=== PATIENT | male | born 1980 | race Caucasian/White ===

== ENCOUNTER 2019-01-23 19:41 | Emergency (ER) | payer BC, OTHER ==
[2019-01-23] MEDS ORDERED: Sodium Chloride 0.9% 10 ML Syringe FLUSH PRN (20:11)
--- NOTE | 2019-01-23 20:47 | EDM.PDOC ---
ED HPI GENERAL MEDICAL PROBLEM - General Chief Complaint: Cardiovascular Problem Stated Complaint: DIZZY/HIGH BLOOD PRESSURE SENT BY [facility] Time Seen by Provider: 01/23/19 20:06 Source of Information: Reports: Patient, RN Notes Reviewed History Limitations: Reports: No Limitations - History of Present Illness INITIAL COMMENTS - FREE TEXT/NARRATIVE: Patient is a 38-year-old male who presents to the ED for the evaluation of high blood pressure, and chest discomfort. Patient notes he has been having issues with high blood pressure for a while now, he was prescribed lisinopril 10 mg last year for this, but he states he ceased taking this this summer, as he was feeling better. Patient started to check his blood pressure at home today again for some reason, and it was found to be 140/97, and again at 161/105. Patient blood pressure at time of triage is 167/119. He went to the walk-in clinic today, but told him to come to the ER for management as his blood pressure was in the 160s systolically. Patient notes he has been having a headache in the back of his head, and he has a feeling of chest discomfort or tightness, that is in the middle of his chest for the last hour. He does have a history of GERD, so he took Tums thinking this was indigestion, the Tums help the indigestion, but did not help the chest discomfort or tightness. He states he has mild shortness of breath with exertion. And that he is never had this tightness or discomfort before. He is not a smoker, uses alcohol very rarely, and does not use any drugs. He notes that his mother's grandfather's brothers from heart attacks at the ages of 38 and 52. His most recent care provider was Natasha Jacobsen out of the [facility]. Middle Chest Pain Score (Numeric/FACES): 3 - Related Data Allergies Allergy/AdvReac Type Severity Reaction Status Date / Time No Known Allergies Allergy Verified 01/23/19 19:52 Home Meds: Home Meds Lisinopril 10 mg PO DAILY #30 tablet 01/23/19 [Rx] Past Medical History HEENT History: Reports: Impaired Vision Cardiovascular History: Reports: Hypertension Respiratory History: Reports: None Gastrointestinal History: Reports: GERD Genitourinary History: Reports: None Neurological History: Reports: None Psychiatric History: Reports: None Endocrine/Metabolic History: Reports: None Hematologic History: Reports: None Immunologic History: Reports: None Oncologic (Cancer) History: Reports: None Dermatologic History: Reports: None - Infectious Disease History Infectious Disease History: Reports: None - Past Surgical History HEENT Surgical History: Reports: Myringotomy w Tube(s) Musculoskeletal Surgical History: Reports: Other (See Below) Other Musculoskeletal Surgeries/Procedures:: Left Knee Surgery Social & Family History - Tobacco Use Smoking Status *Q: Never Smoker - Caffeine Use Caffeine Use: Reports: None - Recreational Drug Use Recreational Drug Use: No ED ROS GENERAL - Review of Systems Review Of Systems: See Below Constitutional: Denies: Fever, Chills, Malaise Respiratory: Reports: Shortness of Breath (mild with exertion) Cardiovascular: Reports: Chest Pain (mid chest tightness/discomfort), Blood Pressure Problem (hx of htn, elevated readings at home), Dyspnea on Exertion ( mild). Denies: Edema, Lightheadedness, Palpitations GI/Abdominal: Denies: Diarrhea, Nausea, Vomiting Musculoskeletal: Denies: Back Pain Neurological: Reports: Headache ED EXAM, GENERAL - Physical Exam Exam: See Below Exam Limited By: No Limitations General Appearance: Alert, WD/WN, No Apparent Distress Eye Exam: Bilateral Eye: EOMI, Normal Inspection, PERRL Ears: Normal External Exam Nose: Normal Inspection Throat/Mouth: Normal Inspection, Normal Lips, Normal Teeth, Normal Gums, Normal Oropharynx, Normal Voice, No Airway Compromise Head: Atraumatic, Normocephalic Neck: Normal Inspection Respiratory/Chest: No Respiratory Distress, Lungs Clear, Normal Breath Sounds, No Accessory Muscle Use, Chest Non-Tender Cardiovascular: Normal Peripheral Pulses, Regular Rate, Rhythm, No Edema, No Murmur Peripheral Pulses: 3+: Radial (L), Radial (R) GI/Abdominal: Normal Bowel Sounds, Soft, Non-Tender, No Distention, No Mass Back Exam: Normal Inspection Extremities: Normal Inspection, Normal Range of Motion, Normal Capillary Refill Neurological: Alert, Oriented, Normal Cognition, No Motor/Sensory Deficits Psychiatric: Normal Affect, Normal Mood Skin Exam: Warm, Dry, Intact, Normal Color, No Rash EKG INTERPRETATION EKG Date: 01/23/19 Time: 20:14 Rhythm: NSR Rate (Beats/Min): 87 [place]: Normal P-Wave: Present QRS: Normal ST-T: Normal QT: Normal Comparison: Other: (Previous EKG reviewed by myself, no apparent change noted.) EKG Interpretation Comments: consider L atrial hypertrophy, mildly decreased voltage in limb leads, diffuse early repolarization pattern. Reviewed by myself and Dr. Gordon. Course - Vital Signs Last Recorded V/S: Last Vital Signs Temp 98.3 F 01/23/19 19:48 Pulse 100 01/23/19 19:48 Resp 16 01/23/19 19:48 BP 167/119 H 01/23/19 19:48 Pulse Ox 99 01/23/19 19:48 - Orders/Labs/Meds Orders: Active Orders 24 hr Category Date Time Status EKG Documentation Completion [RC] STAT Care 01/23/19 20:11 Active Peripheral IV Care [RC] . DIRECTED Care 01/23/19 20:11 Active Chest 1V Frontal [CR] Stat Exams 01/23/19 20:11 Taken Sodium Chloride 0.9% [Saline Flush] Med 01/23/19 20:11 Active 10 ml FLUSH ASDIRECTED PRN Peripheral IV Insertion Adult [OM.PC] Stat Oth 01/23/19 20:11 Ordered Medication Orders Sodium Chloride (Saline Flush) 10 ml FLUSH ASDIRECTED PRN PRN Reason: Keep Vein Open Last Admin: 01/23/19 20:20 Dose: 10 ml Labs: Laboratory Tests 01/23/19 01/23/19 01/23/19 Range/Units 20:15 20:15 20:15 WBC 6.35 (4.23-9.07) K/mm3 RBC 4.91 (4.63-6.08) M/mm3 Hgb 14.9 D (13.7-17.5) gm/dl Hct 41.5 (40.1-51.0) % MCV 84.5 (79.0-92.2) fl MCH 30.3 (25.7-32.2) pg MCHC 35.9 H (32.2-35.5) g/dl RDW Std Deviation 38.0 (35.1-43.9) fL Plt Count 218 (163-337) K/mm3 MPV 9.8 (9.4-12.3) fl Neutrophils % (Manual) 59 (40-60) % Band Neutrophils % 0 (0-10) % Lymphocytes % (Manual) 33 (20-40) % Atypical Lymphs % 0 % Monocytes % (Manual) 6 (2-10) % Eosinophils % (Manual) 2 (0.8-7.0) % Basophils % (Manual) 0 L (0.2-1.2) Platelet Estimate Adequate Plt Morphology Comment Normal RBC Morph Comment Normal PT 10.5 (9.7-12.0) SECONDS INR 0.96 APTT 27 (22-31) SECONDS Sodium 142 (136-145) mEq/L Potassium 3.7 (3.5-5.1) mEq/L Chloride 106 (98-107) mEq/L Carbon Dioxide 25 (21-32) mEq/L Anion Gap 14.7 (5-15) BUN 21 H (7-18) mg/dL Creatinine 1.2 (0.7-1.3) mg/dL Est Cr Clr Drug Dosing 84.28 mL/min Estimated GFR (MDRD) > 60 (>60) mL/min BUN/Creatinine Ratio 17.5 (14-18) Glucose 102 (74-106) mg/dL Calcium 9.2 (8.5-10.1) mg/dL Magnesium 2.0 (1.8-2.4) mg/dl Total Bilirubin 0.5 (0.2-1.0) mg/dL AST 8 L (15-37) U/L ALT 30 (16-63) U/L Alkaline Phosphatase 65 (46-116) U/L Troponin I < 0.017 (0.00-0.056) ng/mL Total Protein 7.3 (6.4-8.2) g/dl Albumin 4.1 (3.4-5.0) g/dl Globulin 3.2 gm/dL Albumin/Globulin Ratio 1.3 (1-2) Meds: Medications Generic Name Dose Route Start Last Admin Trade Name Freq PRN Reason Stop Dose Admin Sodium Chloride 10 ml 01/23/19 20:11 01/23/19 20:20 Saline Flush FLUSH 10 ml ASDIRECTED PRN Administration Keep Vein Open - Re-Assessments/Exams Free Text/Narrative Re-Assessment/Exam: 01/23/19 20:47 Patient presents to the ED for chest discomfort and elevated blood pressure. Patient's EKG demonstrates normal sinus rhythm at 87 bpm, no acute ischemic changes noted. Have order chest x-ray, CBC, CMP, troponin, magnesium, and coags for further evaluation. If labs are within normal limits, will likely start the patient back on his lisinopril and have him follow-up with a primary care provider of choice. He notes he recently moved to [place], and is looking for a new care provider. 01/23/19 21:14 Patient's laboratory evaluation demonstrates no focal abnormalities. Troponin negative. Chest x-ray appears to be within normal limits, no acute infiltrates noted. This was reviewed by myself and Dr. Gordon. Will discharge patient home with general recommendations and start him back on his lisinopril 10 mg and have him follow-up with the primary care provider of choice. Departure - Departure Time of Disposition: 21:15 Disposition: Home, Self-Care 01 Condition: Fair Clinical Impression: Elevated blood pressure reading with diagnosis of hypertension, Chest discomfort Prescriptions: Lisinopril 10 mg PO DAILY #30 tablet Instructions: How to Take Your Blood Pressure Forms: ED Department Discharge Additional Instructions: You were evaluated in the ER today regarding your elevated blood pressure and feelings of chest discomfort. Your EKG was within normal limits, there are no acute ischemic changes noted. Your laboratory evaluation also demonstrated no acute focal abnormalities. Your chest x-ray was within normal limits as well. You were started on lisinopril 10 mg, 1 tab daily again. You were given a 30- day supply, you will need to set up primary care in this timeframe for further and future management of your blood pressure. Our [facility] clinic number is , the [facility] is [phone]. Any family practice provider would be able to provide you with the services. Please return to the ER at any time if your symptoms should change or worsen. Sepsis Event Note - Evaluation Sepsis Screening Result: No Definite Risk - Focused Exam Vital Signs: Vital Signs Temp Pulse Resp BP Pulse Ox 01/23/19 19:48 98.3 F 100 16 167/119 H 99 Date Exam was Performed: 01/23/19 Time Exam was Performed: 21:14 - My Orders Last 24 Hours: My Active Orders 01/23/19 20:11 EKG Documentation Completion [RC] STAT Peripheral IV Care [RC] . DIRECTED Chest 1V Frontal [CR] Stat Sodium Chloride 0.9% [Saline Flush] 10 ml FLUSH ASDIRECTED PRN Peripheral IV Insertion Adult [OM.PC] Stat - Assessment/Plan Last 24 Hours: My Active Orders 01/23/19 20:11 EKG Documentation Completion [RC] STAT Peripheral IV Care [RC] . DIRECTED Chest 1V Frontal [CR] Stat Sodium Chloride 0.9% [Saline Flush] 10 ml FLUSH ASDIRECTED PRN Peripheral IV Insertion Adult [OM.PC] Stat
--- NOTE | 2019-01-24 10:21 | CR ---
Chest: Portable view of the chest was obtained. Comparison: Prior chest x-ray of 02/01/18. Heart size and mediastinum are normal. Lungs are clear. Bony structures are grossly intact. Impression: 1. Nothing acute is seen on portable chest x-ray. Diagnostic code #1 This report was dictated in [place] Standard Time
== END 2019-01-23 21:42 | disposition home or self-care (01) ==
LOC: JD.ED 19:41
DX: I10 Essential (primary) hypertension (principal); R07.89 Other chest pain; Z79.899 Other long term (current) drug therapy
CPT/HCPCS: 36415; 71045; 71045-26; 80053; 83735; 84484; 85007; 85027; 85610; 85730; 93005; 93010; 99284; 99285-25

== ENCOUNTER 2019-06-25 11:06 | Emergency (ER) | payer BC ==
[2019-06-25] MEDS ORDERED: LORazepam 0.5 MG Tab PO ONE (11:40)
--- NOTE | 2019-06-25 11:47 | EDM.PDOC ---
ED HPI GENERAL MEDICAL PROBLEM - General Chief Complaint: Chest Pain Stated Complaint: CHEST PAIN Time Seen by Provider: 06/25/19 11:30 Source of Information: Reports: Patient, Old Records, RN Notes Reviewed History Limitations: Reports: No Limitations - History of Present Illness INITIAL COMMENTS - FREE TEXT/NARRATIVE: Patient is a 38-year-old male who presents to the ED for the evaluation of his left-sided chest pain. Patient states that he developed some left-sided chest pain and tightness feelings after he finished breakfast this morning, he states that he gets these from time to time, when he "overeats" he thought maybe he had done this again this morning. Triage nurse noted that he was hyperventilating at time of arrival. The patient states he has been told that he has some anxiety, and this feels similar to times when he has been told he has anxiety. He is complaining of some mild indigestion as well, he states that he did not take any medications to try to help relieve the indigestion. He does try taking walks, shower/balance when these waves hit him, but states nothing really seems to help him much. Patient notes that he feels like his heart is beating out of his chest, he feels a wave start in his stomach and work its way upwards, and notes that he gets some intense burning type pain in his right arm when these "waves hit him". He notes that he does have some mild shortness of breath with this, lightheadedness and believes he has some hot flashes where he feels hot and cold but has not had a fever or cough, he denies any nausea/vomiting/diarrhea. Patient states that he does take lisinopril, and that his primary care provider is Verona Jacobsen from the [facility] Chest Pain Score (Numeric/FACES): 6 - Related Data Allergies Allergy/AdvReac Type Severity Reaction Status Date / Time No Known Allergies Allergy Verified 06/25/19 11:18 Home Meds: Home Meds lisinopriL [Lisinopril] 10 mg PO DAILY #30 tablet 01/23/19 [Rx] LORazepam [Ativan] 1 mg PO TID PRN #12 tab 06/25/19 [Rx] Past Medical History HEENT History: Reports: Impaired Vision Cardiovascular History: Reports: Hypertension Respiratory History: Reports: None Gastrointestinal History: Reports: GERD Genitourinary History: Reports: None Neurological History: Reports: None Psychiatric History: Reports: None Endocrine/Metabolic History: Reports: None Hematologic History: Reports: None Immunologic History: Reports: None Oncologic (Cancer) History: Reports: None Dermatologic History: Reports: None - Infectious Disease History Infectious Disease History: Reports: None - Past Surgical History HEENT Surgical History: Reports: Myringotomy w Tube(s) Musculoskeletal Surgical History: Reports: Other (See Below) Other Musculoskeletal Surgeries/Procedures:: Left Knee Surgery Social & Family History - Tobacco Use Smoking Status *Q: Never Smoker - Caffeine Use Caffeine Use: Reports: None ED ROS GENERAL - Review of Systems Review Of Systems: Comprehensive ROS is negative, except as noted in HPI. ED EXAM, GENERAL - Physical Exam Exam: See Below Exam Limited By: No Limitations General Appearance: Alert, WD/WN, No Apparent Distress, Anxious (mildly anxious , patient does talk fast) Throat/Mouth: Normal Inspection, Normal Lips, Normal Voice Head: Atraumatic, Normocephalic Neck: Normal Inspection Respiratory/Chest: No Respiratory Distress, Lungs Clear, Normal Breath Sounds, No Accessory Muscle Use, Chest Non-Tender Cardiovascular: Normal Peripheral Pulses, Regular Rate, Rhythm, No Edema, No Murmur GI/Abdominal: Normal Bowel Sounds, Soft, Non-Tender, No Distention, No Mass Extremities: Normal Inspection, Normal Capillary Refill Neurological: Alert, Oriented, Normal Cognition, No Motor/Sensory Deficits Psychiatric: Normal Affect, Normal Mood, Anxious (slightly) Skin Exam: Warm, Dry, Intact, Normal Color, No Rash EKG INTERPRETATION EKG Date: 06/25/19 Time: 11:13 Rhythm: NSR (sinus tachycardia) Rate (Beats/Min): 103 [place]: Normal P-Wave: Present QRS: Normal ST-T: Normal QT: Normal EKG Interpretation Comments: No obvious ischemia or acute ST changes noted, reviewed by myself and Dr. Gordon. Course - Vital Signs Last Recorded V/S: Last Vital Signs Temp 97.4 F 06/25/19 11:15 Pulse 110 H 06/25/19 11:15 Resp 16 06/25/19 11:15 BP 128/88 06/25/19 11:15 Pulse Ox 99 06/25/19 11:15 - Orders/Labs/Meds Orders: Active Orders 24 hr Category Date Time Status EKG Documentation Completion [RC] STAT Care 06/25/19 11:21 Active COMPREHENSIVE METABOLIC PN,CMP [CHEM] Stat Lab 06/25/19 11:21 Ordered TROPONIN I [CHEM] Stat Lab 06/25/19 11:21 Ordered Labs: Laboratory Tests 06/25/19 06/25/19 Range/Units 11:40 11:40 WBC 7.48 (4.23-9.07) K/mm3 RBC 5.30 (4.63-6.08) M/mm3 Hgb 16.3 (13.7-17.5) gm/dl Hct 45.4 (40.1-51.0) % MCV 85.7 (79.0-92.2) fl MCH 30.8 (25.7-32.2) pg MCHC 35.9 H (32.2-35.5) g/dl RDW Std Deviation 38.8 (35.1-43.9) fL Plt Count 246 (163-337) K/mm3 MPV 10.0 (9.4-12.3) fl Neut % (Auto) 73.6 H (34.0-67.9) % Lymph % (Auto) 13.5 L (21.8-53.1) % [place] % (Auto) 10.2 (5.3-12.2) % Eos % (Auto) 1.9 (0.8-7.0) Baso % (Auto) 0.3 (0.1-1.2) % Neut # (Auto) 5.51 H (1.78-5.38) K/mm3 Lymph # (Auto) 1.01 L (1.32-3.57) K/mm3 [place] # (Auto) 0.76 (0.30-0.82) K/mm3 Eos # (Auto) 0.14 (0.04-0.54) K/mm3 Baso # (Auto) 0.02 (0.01-0.08) K/mm3 Sodium 139 (136-145) mEq/L Potassium 3.5 (3.5-5.1) mEq/L Chloride 105 (98-107) mEq/L Carbon Dioxide 22 (21-32) mEq/L Anion Gap 15.5 H (5-15) BUN 22 H (7-18) mg/dL Creatinine 1.3 (0.7-1.3) mg/dL Est Cr Clr Drug Dosing 77.80 mL/min Estimated GFR (MDRD) > 60 (>60) mL/min BUN/Creatinine Ratio 16.9 (14-18) Glucose 118 H (74-106) mg/dL Calcium 9.1 (8.5-10.1) mg/dL Total Bilirubin 1.1 H (0.2-1.0) mg/dL ALT 28 (16-63) U/L Troponin I < 0.017 (0.00-0.056) ng/mL Total Protein 7.7 (6.4-8.2) g/dl Albumin 4.2 (3.4-5.0) g/dl Globulin 3.5 gm/dL Albumin/Globulin Ratio 1.2 (1-2) Meds: Medications Discontinued Medications Generic Name Dose Route Start Last Admin Trade Name Freq PRN Reason Stop Dose Admin Lorazepam 0.5 mg 06/25/19 11:40 06/25/19 11:51 Ativan PO 06/25/19 11:41 0.5 mg ONETIME ONE Administration - Re-Assessments/Exams Free Text/Narrative Re-Assessment/Exam: 06/25/19 11:45 Patient presents to the ER for evaluation of his left-sided chest tightness/ pain. Upon talking with the patient, I do believe this might stem from anxiety in nature. Standing orders were put in at time of triage, to include basic labs and EKG, EKG shows no obvious signs of acute ischemia, was reviewed by myself and Dr. Gordon. 06/25/19 12:03 CXR demonstrates no acute findings. 06/25/19 12:50 Labs have returned, troponin is negative, metabolic panel suggest mild dehydration, will have him increase his oral fluid intake, patient states that the Ativan did seem to help his symptoms, will send him home with a few tablets of this and have him follow-up with his primary care provider for continuation. Patient was okay with this plan and will be discharged home at this time. Departure - Departure Time of Disposition: 12:51 Disposition: Home, Self-Care 01 Condition: Good Clinical Impression: Chest tightness, Anxiety Prescriptions: LORazepam [Ativan] 1 mg PO TID PRN #12 tab PRN Reason: Anxiety Instructions: Nonspecific Chest Pain, Adult, [id number], Living With Anxiety Referrals: PCP,Not In Area [Primary Care Provider] - Forms: ED Department Discharge Additional Instructions: You were evaluated in the ER today regarding your left-sided chest discomfort. You had some labs taken, and an EKG and a chest x-ray done, all of these returned to be within normal limits. There is no sign of any acute heart attack or other cardiac etiology at today's visit. You were given some Ativan in the ER, this seemed to help your symptoms, which is suggestive that this is more likely due to anxiety than any cardiac issue. You were given a few tablets of Ativan to try on outpatient basis, please take 1 tablet 3 times a day as needed for further anxiety relief. You will need to follow-up with your primary care provider for a refill of this medication if you feel it is working for you. Please return to the ER at any time if symptoms change or worsen. Sepsis Event Note - Evaluation Sepsis Screening Result: No Definite Risk - Focused Exam Vital Signs: Vital Signs Temp Pulse Resp BP Pulse Ox 06/25/19 11:15 97.4 F 110 H 16 128/88 99 Date Exam was Performed: 06/25/19 Time Exam was Performed: 12:50
--- NOTE | 2019-06-25 11:57 | CR ---
Chest: Portable view of the chest was obtained. Comparison: Prior chest x-ray of 01/23/19. Heart size and mediastinum are normal. Lungs are clear with no acute parenchymal change. Bony structures are grossly intact. Impression: 1. Nothing acute is identified on portable chest x-ray. Diagnostic code #1 This report was dictated in MDT
== END 2019-06-25 13:35 | disposition home or self-care (01) ==
LOC: JD.ED 11:06
DX: F41.9 Anxiety disorder, unspecified (principal); R07.89 Other chest pain; I10 Essential (primary) hypertension; R00.0 Tachycardia, unspecified; Z79.899 Other long term (current) drug therapy
CPT/HCPCS: 36415; 71045; 80053; 84484; 85025; 93005; 99285; A9270; 93010; 99283

== ENCOUNTER 2019-07-20 18:05 | Emergency (ER) | payer BC ==
--- NOTE | 2019-07-20 19:52 | EDM.PDOC ---
ED HPI GENERAL MEDICAL PROBLEM - General Chief Complaint: Bite:Animal, Insect Stated Complaint: HEADACHE/STIFFNESS/SKIN COMPLAINT Time Seen by Provider: 07/20/19 18:34 Source of Information: Reports: Patient History Limitations: Reports: No Limitations - History of Present Illness INITIAL COMMENTS - FREE TEXT/NARRATIVE: Patient is a 38-year-old male who presents to the emergency department with complaints of a persistent rash near his umbilicus, intermittent headaches, and joint aches. He states about a week and a half ago he was bit by a tick inside his umbilicus. Shortly thereafter he developed a rash that at one time surrounded his entire umbilicus. Rash is now only present a small amount to the right side of the umbilicus. It is intermittently itchy. He believes it was a wood tick, however he states he did not look at it very closely to determine if it was a deer tick. The bite took place in [place]. He cannot differentiate if the rash was originally a bull's-eye rash as it originated inside his umbilicus. He has had no fever or chills. Generalized Pain Score (Numeric/FACES): 5 - Related Data Allergies Allergy/AdvReac Type Severity Reaction Status Date / Time No Known Allergies Allergy Verified 07/20/19 18:22 Home Meds: Home Meds lisinopriL [Lisinopril] 10 mg PO DAILY #30 tablet 01/23/19 [Rx] LORazepam [Ativan] 1 mg PO TID PRN #12 tab 06/25/19 [Rx] Doxycycline [Vibra-Tabs] 100 mg PO Q12HR #20 tab 07/20/19 [Rx] Past Medical History HEENT History: Reports: Impaired Vision Cardiovascular History: Reports: Hypertension Respiratory History: Reports: None Gastrointestinal History: Reports: GERD Genitourinary History: Reports: None Neurological History: Reports: None Psychiatric History: Reports: None Endocrine/Metabolic History: Reports: None Hematologic History: Reports: None Immunologic History: Reports: None Oncologic (Cancer) History: Reports: None Dermatologic History: Reports: None - Infectious Disease History Infectious Disease History: Reports: None - Past Surgical History HEENT Surgical History: Reports: Myringotomy w Tube(s) Musculoskeletal Surgical History: Reports: Other (See Below) Other Musculoskeletal Surgeries/Procedures:: Left Knee Surgery Social & Family History - Tobacco Use Smoking Status *Q: Never Smoker - Caffeine Use Caffeine Use: Reports: Coffee ED ROS GENERAL - Review of Systems Review Of Systems: See Below Constitutional: Reports: No Symptoms, Fatigue. Denies: Fever, Chills, Weakness, Night Sweats, Weight Loss HEENT: Reports: No Symptoms Respiratory: Reports: No Symptoms Cardiovascular: Reports: No Symptoms Endocrine: Reports: No Symptoms GI/Abdominal: Reports: No Symptoms : Reports: No Symptoms Musculoskeletal: Reports: Joint Pain Skin: Reports: Rash Neurological: Reports: Headache Psychiatric: Reports: No Symptoms Hematologic/Lymphatic: Reports: No Symptoms Immunologic: Reports: No Symptoms ED EXAM, ANIMAL BITE - Physical Exam Exam: See Below Exam Limited By: No Limitations General Appearance: Alert, WD/WN, No Apparent Distress Respiratory/Chest: No Respiratory Distress, Lungs Clear, Normal Breath Sounds, No Accessory Muscle Use, Chest Non-Tender Cardiovascular: Normal Peripheral Pulses, Regular Rate, Rhythm, No Edema, No Gallop, No JVD, No Murmur, No Rub Neurological: Alert, Oriented, CN II-XII Intact, Normal Cognition, Normal Gait, Normal Reflexes, No Motor/Sensory Deficits Psychiatric: Normal Affect, Normal Mood Skin Exam: Rash (3 cm maculopapular rash to the right of the umbilicus. no open areas or drainage noted.) Course - Vital Signs Last Recorded V/S: Last Vital Signs Temp 97.8 F 07/20/19 18:18 Pulse 73 07/20/19 18:18 Resp 18 07/20/19 18:18 BP 137/89 07/20/19 18:18 Pulse Ox 97 07/20/19 18:18 - Orders/Labs/Meds Orders: Active Orders 24 hr Category Date Time Status LYME (B.BURGDORFERI) PCR [REF] Routine Lab 07/20/19 19:50 Received Labs: Laboratory Tests 07/20/19 07/20/19 Range/Units 19:50 19:50 WBC 6.03 (4.23-9.07) K/mm3 RBC 5.16 (4.63-6.08) M/mm3 Hgb 15.8 (13.7-17.5) gm/dl Hct 44.7 (40.1-51.0) % MCV 86.6 (79.0-92.2) fl MCH 30.6 (25.7-32.2) pg MCHC 35.3 (32.2-35.5) g/dl RDW Std Deviation 39.1 (35.1-43.9) fL Plt Count 227 (163-337) K/mm3 MPV 10.2 (9.4-12.3) fl Neut % (Auto) 56.3 (34.0-67.9) % Lymph % (Auto) 27.9 (21.8-53.1) % Dickinson % (Auto) 13.1 H (5.3-12.2) % Eos % (Auto) 2.2 (0.8-7.0) Baso % (Auto) 0.3 (0.1-1.2) % Neut # (Auto) 3.40 (1.78-5.38) K/mm3 Lymph # (Auto) 1.68 (1.32-3.57) K/mm3 Dickinson # (Auto) 0.79 (0.30-0.82) K/mm3 Eos # (Auto) 0.13 (0.04-0.54) K/mm3 Baso # (Auto) 0.02 (0.01-0.08) K/mm3 Sodium 139 (136-145) mEq/L Potassium 4.5 (3.5-5.1) mEq/L Chloride 104 (98-107) mEq/L Carbon Dioxide 26 (21-32) mEq/L Anion Gap 13.5 (5-15) BUN 19 H (7-18) mg/dL Creatinine 1.3 (0.7-1.3) mg/dL Est Cr Clr Drug Dosing 77.80 mL/min Estimated GFR (MDRD) > 60 (>60) mL/min BUN/Creatinine Ratio 14.6 (14-18) Glucose 89 (74-106) mg/dL Calcium 9.1 (8.5-10.1) mg/dL Total Bilirubin 0.9 (0.2-1.0) mg/dL AST 12 L (15-37) U/L ALT 23 (16-63) U/L Alkaline Phosphatase 64 (46-116) U/L C-Reactive Protein <0.2 (<1.0) mg/dL Total Protein 7.6 (6.4-8.2) g/dl Albumin 4.4 (3.4-5.0) g/dl Globulin 3.2 gm/dL Albumin/Globulin Ratio 1.4 (1-2) - Re-Assessments/Exams Free Text/Narrative Re-Assessment/Exam: Patient's hematology was grossly unremarkable. Lyme's disease testing has been submitted, however states a number of days to get results. We will start the patient on doxycycline for treatment of early Lyme's disease in the event this would be positive. He will be notified of the test results once they are completed. Discharge instructions as documented. Departure - Departure Time of Disposition: 20:47 Disposition: Home, Self-Care 01 Condition: Good Clinical Impression: Rash Tick bite of abdomen Qualifiers: Encounter type: initial encounter Qualified Code(s): S30.861A - Insect bite (nonvenomous) of abdominal wall, initial encounter - Discharge Information *PRESCRIPTION DRUG MONITORING PROGRAM REVIEWED*: No *COPY OF PRESCRIPTION DRUG MONITORING REPORT IN PATIENT ALEJANDRINA: No Prescriptions: Doxycycline [Vibra-Tabs] 100 mg PO Q12HR #20 tab Instructions: Tick Bite Information, Adult, [id number] Referrals: Verona Jacobsen NP [Primary Care Provider] - Forms: ED Department Discharge Additional Instructions: You were seen in the emergency department today for a tick bite resulting in a rash to your umbilicus, joint aches, and generalized fatigue. Blood work was done and found to be normal, however the Lyme's disease test does take approximately 10 days to get results on. In the meantime, we will treat you preventatively with doxycycline for early Lyme's disease. This medication has been sent to [facility]. Take it twice daily for 10 days. You may use Tylenol or ibuprofen as needed for body aches. Ensure that you are staying adequately hydrated. You will be notified when the results of the Lyme's disease test are available. If you experience any new or worsening symptoms of concern, please do not hesitate to return to the emergency department. Sepsis Event Note - Evaluation Sepsis Screening Result: No Definite Risk - Focused Exam Vital Signs: Vital Signs Temp Pulse Resp BP Pulse Ox 07/20/19 18:18 97.8 F 73 18 137/89 97 Date Exam was Performed: 07/20/19 Time Exam was Performed: 22:13 - My Orders Last 24 Hours: My Active Orders 07/20/19 19:50 LYME (B.BURGDORFERI) PCR [REF] Routine - Assessment/Plan Last 24 Hours: My Active Orders 07/20/19 19:50 LYME (B.BURGDORFERI) PCR [REF] Routine
== END 2019-07-20 20:55 | disposition home or self-care (01) ==
LOC: JD.ED 18:05
DX: S30.861A Insect bite (nonvenomous) of abdominal wall, initial encounter (principal); I10 Essential (primary) hypertension; Z79.899 Other long term (current) drug therapy; W57.XXXA Bitten or stung by nonvenomous insect and other nonvenomous arthropods, initial encounter
CPT/HCPCS: 36415; 80053; 85025; 86140; 87476; 99282; 99283

== ENCOUNTER 2020-05-12 06:35 | Emergency (ER) | payer BC ==
--- NOTE | 2020-05-12 07:13 | EDM.PDOC ---
ED HPI GENERAL MEDICAL PROBLEM - General Chief Complaint: General Stated Complaint: ABD PAIN/SOB/CHEST PAIN X30 DAYS/LIGHT HEADED Time Seen by Provider: 05/12/20 06:48 Source of Information: Reports: Patient, Family History Limitations: Reports: No Limitations - History of Present Illness INITIAL COMMENTS - FREE TEXT/NARRATIVE: 39-year-old male presents to the ED complaining of pressure in the central chest in particular the epigastrium of his upper abdomen. Claims he is unable to eat as it accumulates in his distal esophagus and feels like it is going up into his chest. We will then at some later time percolate through into the upper abdomen causing him to burp and belch repeatedly. He estimates a 30 pound weight loss over the last 30 days. Had an EGD done in [place] 2 weeks ago and was told he had a hiatal hernia but no ulceration. He has been on Protonix 40 mg daily for the last 3 years. Is also on lisinopril 10 mg daily for hypertension. He has never been tested for gluten enteropathy. Does not really complain of pain but more pressure discomfort when he tries to eat even soup. Questionable whether or not he has achalasia. States his bowels tend to be on the looser side but to never contain blood. Occasional vomits food product but no blood. Onset: Unknown/Unsure ([place] symptom onset over period of 2 months or more.) Onset Date: 03/14/20 Duration: Week(s):, Chronic, Constant, Getting Worse Location: Reports: Abdomen (Upper abdominal pain worsened by eating with associated 30 pound weight loss reported over the last month.) Quality: Reports: Ache, Pressure Severity: Moderate Improves with: Reports: None Worsens with: Reports: Eating Context: Denies: Activity, Exercise, Lifting, Sick Contact, Trauma, Other Associated Symptoms: Reports: Malaise, Nausea/Vomiting (Nausea times occasional reflux versus vomiting.), Other (Occasional mild diarrhea stools.) Treatments DEAN OF GIRLS: Reports: Other (see below) (Tonics 40 mg daily.) Bilateral Upper Abdomen Pain Score (Numeric/FACES): 5 - Related Data Allergies Allergy/AdvReac Type Severity Reaction Status Date / Time No Known Allergies Allergy Verified 07/20/19 18:22 Home Meds: Home Meds lisinopriL [Lisinopril] 10 mg PO DAILY #30 tablet 01/23/19 [Rx] Pantoprazole [ProTONIX] 40 mg PO DAILY 05/12/20 [History] Sucralfate [Carafate] 1 gm PO TID #300 ml 05/12/20 [Rx] Past Medical History HEENT History: Reports: Impaired Vision Other HEENT History: Wears glasses Cardiovascular History: Reports: Hypertension Respiratory History: Reports: None Gastrointestinal History: Reports: GERD, Hiatal Hernia Genitourinary History: Reports: None Neurological History: Reports: None Psychiatric History: Reports: Anxiety Endocrine/Metabolic History: Reports: None Hematologic History: Reports: None Immunologic History: Reports: None Oncologic (Cancer) History: Reports: None Dermatologic History: Reports: None - Infectious Disease History Infectious Disease History: Reports: None - Past Surgical History HEENT Surgical History: Reports: Adenoidectomy, Myringotomy w Tube(s), Tonsillectomy Musculoskeletal Surgical History: Reports: Arthroscopic Knee, Other (See Below) Other Musculoskeletal Surgeries/Procedures:: Left Knee Surgery Social & Family History - Tobacco Use Tobacco Use Status *Q: Unknown Ever Used Tobacco - Caffeine Use Caffeine Use: Reports: Coffee - Living Situation & Occupation Living situation: Reports: Occupation: Unemployed ED ROS GENERAL - Review of Systems Review Of Systems: See Below Constitutional: Reports: Malaise, Weakness, Fatigue, Decreased Appetite ([place] weight loss in 30 days.), Weight Loss. Denies: Fever, Chills HEENT: Reports: Glasses Respiratory: Reports: Shortness of Breath, Cough. Denies: Wheezing, Pleuritic Chest Pain (In his lower chest gives him a sensation of shortness of breath but no true dyspnea.), Sputum, Hemoptysis Cardiovascular: Reports: Chest Pain (Occasional.), Blood Pressure Problem ( Pain up from his stomach and epigastrium.), Lightheadedness, Palpitations. Denies: Claudication, Dyspnea on Exertion, Edema, Orthopnea Endocrine: Reports: Fatigue GI/Abdominal: Reports: Abdominal Pain (Primarily epigastric abdominal discomfort), Diarrhea (Rare vomiting or loose stools), Decreased Appetite, Nausea, Vomiting : Reports: No Symptoms Musculoskeletal: Reports: No Symptoms Skin: Reports: No Symptoms Neurological: Reports: Dizziness Psychiatric: Reports: Anxiety Hematologic/Lymphatic: Reports: No Symptoms Immunologic: Reports: No Symptoms ED EXAM, GENERAL - Physical Exam Exam: See Below Exam Limited By: No Limitations General Appearance: Alert, WD/WN, No Apparent Distress, Other (Appears mildly th in. Temperature is 36.4 degrees heart rate 81 and sinus respiratory of 17 with O2 sats of 96% room air BP 156/95.) Eye Exam: Bilateral Eye: Normal Inspection (No scleral icterus or blepharal pallor.), PERRL Ears: Normal TMs Throat/Mouth: Normal Oropharynx (Tongue is dry and coated. Oropharynx otherwise shows no signs of infection.), Other Head: Atraumatic, Normocephalic. No: Facial Swelling, Facial Tenderness Neck: Normal Inspection, Supple, Non-Tender, Full Range of Motion. No: Carotid Bruit, Lymphadenopathy (L), Lymphadenopathy (R), Thyromegaly Respiratory/Chest: No Respiratory Distress, Lungs Clear, Normal Breath Sounds, No Accessory Muscle Use Cardiovascular: Normal Peripheral Pulses, Regular Rate, Rhythm, No Edema, No Gallop, No Murmur, No Rub Peripheral Pulses: 3+: Carotid (L), Carotid (R), Posterior Tibial (L), Posterior Tibial (R), Dorsalis Pedis (L), Dorsalis Pedis (R) GI/Abdominal: Normal Bowel Sounds, Soft, No Distention, No Mass, Tender (Is in t he epigastric gastrium with mild diastases recti appreciable on exam. No true hernia identified.). No: Hepatomegaly, Splenomegaly (Male) Exam: No Hernia Back Exam: Normal Inspection, Full Range of Motion. No: CVA Tenderness (L), CVA Tenderness (R) Extremities: Normal Inspection, Normal Range of Motion, Non-Tender, No Pedal Edema Neurological: Alert, Oriented, CN II-XII Intact, Normal Cognition Psychiatric: Normal Affect, Normal Mood Skin Exam: Warm, Dry, Intact, Normal Color, No Rash #1 Interpretation EKG Date: 05/12/20 Time: 07:17 Rhythm: NSR Rate (Beats/Min): 65 [place]: Normal P-Wave: Enlarged (Sitter left atrial hypertrophy. T wave inverted in leads V1 and V2.) QRS: Other (RSR prime wave in lead V1 consider normal variant. Initial poor R wave progression.) ST-T: Other (T wave flattening in V2 only nonspecific finding) QT: Normal EKG Interpretation Comments: Borderline ECG Course - Vital Signs Last Recorded V/S: Last Vital Signs Temp 36.4 C 05/12/20 06:43 Pulse 81 05/12/20 06:43 Resp 17 05/12/20 06:43 BP 156/95 H 05/12/20 06:43 Pulse Ox 96 05/12/20 06:43 - Orders/Labs/Meds Orders: Active Orders 24 hr Category Date Time Status UA W/ASHLEY RFLX IF INDICATED [URIN] Stat Lab 05/12/20 06:56 Ordered Labs: Laboratory Tests 05/12/20 05/12/20 05/12/20 Range/Units 07:30 07:30 07:30 WBC 3.95 L (4.23-9.07) K/mm3 RBC 4.88 (4.63-6.08) M/mm3 Hgb 14.8 (13.7-17.5) gm/dl Hct 41.5 (40.1-51.0) % MCV 85.0 (79.0-92.2) fl MCH 30.3 (25.7-32.2) pg MCHC 35.7 H (32.2-35.5) g/dl RDW Std Deviation 36.5 (35.1-43.9) fL Plt Count 209 (163-337) K/mm3 MPV 10.3 (9.4-12.3) fl Neutrophils % (Manual) 62 H (40-60) % Band Neutrophils % 0 (0-10) % Lymphocytes % (Manual) 24 (20-40) % Atypical Lymphs % 0 % Monocytes % (Manual) 11 H (2-10) % Eosinophils % (Manual) 3 (0.8-7.0) % Basophils % (Manual) 0 L (0.2-1.2) Platelet Estimate Adequate RBC Morph Comment Normal ESR (0-15) mm/hr Sodium 141 (136-145) mEq/L Potassium 3.8 (3.5-5.1) mEq/L Chloride 106 (98-107) mEq/L Carbon Dioxide 24 (21-32) mEq/L Anion Gap 14.8 (5-15) BUN 11 (7-18) mg/dL Creatinine 1.3 (0.7-1.3) mg/dL Est Cr Clr Drug Dosing 77.04 mL/min Estimated GFR (MDRD) > 60 (>60) mL/min BUN/Creatinine Ratio 8.5 L (14-18) Glucose 104 (74-106) mg/dL Calcium 9.4 (8.5-10.1) mg/dL Magnesium 2.1 (1.8-2.4) mg/dl Total Bilirubin 1.0 (0.2-1.0) mg/dL GGT 12 L (15-85) U/L AST 15 (15-37) U/L ALT 25 (16-63) U/L Alkaline Phosphatase 54 (46-116) U/L Troponin I < 0.017 (0.00-0.056) ng/mL C-Reactive Protein <0.2 (<1.0) mg/dL Total Protein 7.5 (6.4-8.2) g/dl Albumin 4.6 (3.4-5.0) g/dl Globulin 2.9 gm/dL Albumin/Globulin Ratio 1.6 (1-2) Lipase 169 (73-393) U/L TSH 3rd Generation (0.358-3.74) uIU/mL 05/12/20 05/12/20 Range/Units 07:30 07:30 WBC (4.23-9.07) K/mm3 RBC (4.63-6.08) M/mm3 Hgb (13.7-17.5) gm/dl Hct (40.1-51.0) % MCV (79.0-92.2) fl MCH (25.7-32.2) pg MCHC (32.2-35.5) g/dl RDW Std Deviation (35.1-43.9) fL Plt Count (163-337) K/mm3 MPV (9.4-12.3) fl Neutrophils % (Manual) (40-60) % Band Neutrophils % (0-10) % Lymphocytes % (Manual) (20-40) % Atypical Lymphs % % Monocytes % (Manual) (2-10) % Eosinophils % (Manual) (0.8-7.0) % Basophils % (Manual) (0.2-1.2) Platelet Estimate RBC Morph Comment ESR 2 (0-15) mm/hr Sodium (136-145) mEq/L Potassium (3.5-5.1) mEq/L Chloride (98-107) mEq/L Carbon Dioxide (21-32) mEq/L Anion Gap (5-15) BUN (7-18) mg/dL Creatinine (0.7-1.3) mg/dL Est Cr Clr Drug Dosing mL/min Estimated GFR (MDRD) (>60) mL/min BUN/Creatinine Ratio (14-18) Glucose (74-106) mg/dL Calcium (8.5-10.1) mg/dL Magnesium (1.8-2.4) mg/dl Total Bilirubin (0.2-1.0) mg/dL GGT (15-85) U/L AST (15-37) U/L ALT (16-63) U/L Alkaline Phosphatase (46-116) U/L Troponin I (0.00-0.056) ng/mL C-Reactive Protein (<1.0) mg/dL Total Protein (6.4-8.2) g/dl Albumin (3.4-5.0) g/dl Globulin gm/dL Albumin/Globulin Ratio (1-2) Lipase (73-393) U/L TSH 3rd Generation 0.511 (0.358-3.74) uIU/mL Meds: Medications Discontinued Medications Generic Name Dose Route Start Last Admin Trade Name Freq PRN Reason Stop Dose Admin Diatrizoate Meglum/Diatrizoate Sod 90 ml 05/12/20 07:55 05/12/20 09:18 Diatrizoate Meglumine/Diatrizoate Sodium 37% 120 Ml Bottle PO 05/12/20 07:56 45 ml ONETIME ONE Administration Dextrose/Sodium Chloride 1,000 mls @ 999 mls/hr 05/12/20 07:45 05/12/20 08:00 Dextrose 5%-Normal Saline IV 999 mls/hr ASDIRECTED MELLY Administration Iopamidol 100 ml 05/12/20 09:15 05/12/20 09:18 Iopamidol 612 Mg/Ml 100 Ml Bottle IVPUSH 05/12/20 09:16 Not Given ONETIME ONE Iopamidol 25 ml 05/12/20 09:16 05/12/20 09:18 Iopamidol 612 Mg/Ml 50 Ml Sdv IVPUSH 05/12/20 09:17 Not Given ONETIME ONE Lorazepam 1 mg 05/12/20 08:02 05/12/20 08:07 Lorazepam 2 Mg/Ml Sdv IVPUSH 05/12/20 08:03 1 mg ONETIME ONE Administration Ondansetron HCl 4 mg 05/12/20 08:02 05/12/20 08:07 Ondansetron 4 Mg/2 Ml Sdv IVPUSH 05/12/20 08:03 4 mg ONETIME ONE Administration Sodium Chloride 10 ml 05/12/20 09:15 05/12/20 09:42 Sodium Chloride 0.9% 10 Ml Syringe FLUSH 10 ml ONETIME PRN Administration Keep Vein Open - Radiology Interpretation Free Text/Narrative:: 39-year-old male presents to the ED with a multitude of upper GI complaints for quite a few months. This is resulted in a he reported 30 pound weight loss over the last 4 to 6 weeks. Recent upper GI EGD done in [place] by gastroenterology services identified a hiatal hernia but no ulceration in the distal esophagus. Patient has a feeling of food accumulation in his distal esophagus if he tries to eat and then has some regurgitation at times and then a feeling like a sudden onset of percolating through the distal esophagus into the stomach. Then he will burp after this. Patient has not had any investigations as far as esophageal motility studies ago. He has been primarily cared for by PA/JUNIOR DATABASE ADMINISTRATOR in [place]. It is unclear to me how he ended up in [place] for an EGD. He has not seen a physician here in [place]. Dr. Leblanc had put in initial orders on this patient. I have added a few other orders. He will have CT of the abdomen and pelvis with oral and IV contrast. - Re-Assessments/Exams Free Text/Narrative Re-Assessment/Exam: 05/12/20 09:36 Labs reveal a normal white count at 3.95 in fact this suggest very mild leukopenia. The differential is normal with 62% neutrophils and 24% lymphocytes 11% monos monocytes which is slightly high hemoglobin is 14.8 with hematocrit of 41.5. Platelet counts 209,000. Sed rate is 2. Sodium 141 with a potassium of 3.8. Chloride 106 the bicarb of 24. Anion gap is 14.8. BUN is 11 with a creatinine of 1.3. GFR is greater than 60. Glucose is 104 with a calcium of 9.4. Magnesium is 2.1. Total bilirubin is 1.0 with a GGT of 12 .AST is 15 ALT is 25. Alk phosphatase is 54. Troponin I is less than 0.017. C- reactive protein is less than 0.2 total protein 7.5 with an albumin fraction of 4.6 which is not suggestive of starvation and a 30 pound weight loss which the patient claims to be experienced over the last 30 days. Lipase is 169. TSH is normal at 0.511. 05/12/20 09:36 Portable chest x-ray has been done. Heart size and mediastinum are normal. Lungs are clear with no acute parenchymal changes no acute osseous findings are appreciated. Patient was experiencing a great deal of anxiety and some nausea about ability to keep down oral contrast. He was given Zofran 4 mg IV and Ativan 1 mg IV for anxiety relief. This is in the hopes of achieving a CT of his abdomen and pelvis. 05/12/20 10:35 CT of the chest and abdomen has been completed with oral cast. It was my intent to give him IV contrast as well. Noncontrast appearance of the liver shows no focal parenchymal abnormality. Spleen shows no abnormality. Adrenal glands show no nodules. Pancreas shows no discrete abnormality. Gallbladder contains no calcified stones kidneys show no abnormal calcifications no discrete renal parenchymal abnormalities appreciated. Ureters show No dilatation or obstructing calculus. Abdominal aorta shows no aneurysm. No retrocrural adenopathy or mesenteric abnormalities are seen. Minimal fat-con taining umbilical hernia noted. Appendix is seen which is normal. No pelvic mass or adenopathy is seen. Slight increased stool is noted within the rectum and portions of the sigmoid colon bowel gas pattern is otherwise within normal limits. Bone window settings were reviewed which show several incidental bone islands within the right femoral neck. Mild disc space narrowing is noted at the L4-5 level. No acute osseous findings are otherwise appreciated. 05/12/20 10:37 copies of the EGD done in [place] at [facility] the test performed on April 24, 2020 the second part of the duodenum was identified by visual landmarks. The scope was subsequently removed slowly while carefully examining the color, texture, anatomy and integrity of the mucosa on the way out. In the stomach the scope was retroflexed to evaluate the cardia and the fundus. The esophagus gastro duodenoscopy was performed without difficulty. The patient tolerated the procedure well. The patient was subsequently transferred to the recovery area in satisfactory condition. Findings are that of a hiatal hernia. Esophageal dilatation performed over guidewire using 17 mm savory dilator normal stomach normal duodenum. There is documentation for follow-up in clinic to review those results and decide on further management if persistent or recurrent symptoms occur. Departure - Departure Time of Disposition: 11:39 Disposition: Home, Self-Care 01 Condition: Fair Clinical Impression: Peptic stricture of esophagus, Hiatal hernia Reflux esophagitis Qualifiers: Esophagitis bleeding: without hemorrhage Qualified Code(s): K21.00 - Gastro- esophageal reflux disease with esophagitis, without bleeding - Discharge Information *PRESCRIPTION DRUG MONITORING PROGRAM REVIEWED*: Not Applicable *COPY OF PRESCRIPTION DRUG MONITORING REPORT IN PATIENT ALEJANDRINA: Not Applicable Prescriptions: Sucralfate [Carafate] 1 gm PO TID #300 ml Instructions: Hiatal Hernia, Gastroesophageal Reflux Disease, Adult, [id number], Esophageal Stricture Referrals: Verona Jacobsen JUNIOR DATABASE ADMINISTRATOR [Primary Care Provider] - Forms: ED Department Discharge Additional Instructions: Evaluation in the emergency room today in regards to persistent problems with ability to swallow with food getting stuck in the pit of your stomach compatible with a peptic stricture or narrowing of the lower portion of the esophagus or food pipe. This was recently confirmed by upper GI endoscopy by core man in [place] on April 24. He identified a hiatal hernia and did in fact dilate your esophagus mildly but he does not say to what degree. The fact that you are still having troubles with taking in any solid food with continued aggressive weight loss indicates that it is quite narrow and needs further dilatation. I have discussed her case with our local surgeon Dr. Cote and he will try and get you into clinic here tomorrow. If we do not have a date and time to see him tomorrow before you leave the ED we will have his title clerk automobile call you later this afternoon with a time to come in tomorrow. In the meantime start the Carafate liquid which is 1 g half hour before an attempt at eating so ideally 3 times a day. Continue your Protonix. I would suggest since your 30 pound weight loss that you could trial off your lisinopril which may help improve your lightheaded spells. You need to have a physician here in the city to help manage other problems and referrals as needed. Suggest following up with either Dr. Kim De La Cruz or both of which work on the third floor [place] of the hospital. You can arrange an appointment by calling [phone]. Sepsis Event Note (ED) - Evaluation Sepsis Screening Result: No Definite Risk - Focused Exam Vital Signs: Vital Signs Temp Pulse Resp BP Pulse Ox 05/12/20 06:43 36.4 C 81 17 156/95 H 96
[2020-05-12] MEDS ORDERED: Dextrose 5%-0.9% NaCl 1,000 ML IV SCH (07:45)
[2020-05-12] MEDS: Diatrizoate Meglumine/Diatrizoate Sodium 37% 120 ML Bottle PO ONE ×2 (08:00→09:18)
[2020-05-12] MEDS ORDERED: Ondansetron 4 MG/2 ML SDV IVPUSH ONE (08:02)
[2020-05-12] MEDS ORDERED: LORazepam 2 MG/ML SDV IVPUSH ONE (08:02)
--- NOTE | 2020-05-12 09:04 | CR ---
Chest: Portable view of the chest was obtained. Comparison: Prior chest x-ray 06/25/19. Heart size and mediastinum are normal. Lungs are clear with no acute parenchymal change. No acute osseous finding is appreciated. Impression: 1. Nothing acute is seen on portable chest x-ray. Diagnostic code #1
[2020-05-12] MEDS ORDERED: Sodium Chloride 0.9% 10 ML Syringe FLUSH PRN (09:15)
[2020-05-12] MEDS ORDERED: Iopamidol 612 MG/ML 100 ML Bottle IVPUSH ONE (09:15)
[2020-05-12] MEDS ORDERED: Iopamidol 612 MG/ML 50 ML SDV IVPUSH ONE (09:16)
--- NOTE | 2020-05-12 09:50 | CT ---
CT abdomen and pelvis Technique: Multiple axial sections were obtained from above the dome of the diaphragm inferiorly through the pubic symphysis. Intravenous contrast was not utilized. Small amount of oral contrast was given. Reconstructed coronal and sagittal images were obtained. Comparison: No prior CT abdomen or pelvis exam is available. Findings: Visualized lung bases show nothing acute. Noncontrast appearance of the liver shows no focal parenchymal abnormality. Spleen shows no abnormality. Adrenal glands show no nodule. Pancreas shows no discrete abnormality. Gallbladder contains no calcified gallstones. Kidneys show no abnormal calcifications. No discrete renal parenchymal abnormality is appreciated. Ureters show no dilatation or obstructing calculus. Abdominal aorta shows no aneurysm. No retroperitoneal adenopathy or mesenteric abnormalities are seen. Minimal fat-containing umbilical hernia is noted. Appendix is seen which is normal. No pelvic mass or adenopathy is seen. Slight increased stool is noted within the rectum and portions of the sigmoid colon. Bowel gas pattern is otherwise within normal limits. Bone window settings were reviewed which show several incidental bone islands within the right femoral neck. Mild disc space narrowing is noted at L4-5. No acute osseous finding is seen. Impression: 1. Slight increased stool within portions of the sigmoid colon and rectum. 2. Other findings as noted above which are believed to be incidental. Diagnostic code #2
== END 2020-05-12 12:23 | disposition home or self-care (01) ==
LOC: JD.ED 06:35
DX: K21.00 Gastro-esophageal reflux disease with esophagitis, without bleeding (principal); K22.2 Esophageal obstruction; K44.9 Diaphragmatic hernia without obstruction or gangrene; I10 Essential (primary) hypertension; Z79.899 Other long term (current) drug therapy
CPT/HCPCS: 36415; 71045; 71045-26; 74176; 74176-26; 80053; 82977; 83690; 83735; 84443; 84484; 85007; 85027; 85652; 86140; 93005; 93010; 96374; 96375; 99284; 99285-25; J2060; J2405; J7042; Q9963

== ENCOUNTER 2020-05-15 06:33 | Day surgery (SDC) | payer BC ==
[~2020-05-15 06:33] MED LIST: Lactated Ringers 1,000 ML IV SCH; Lidocaine 1%/Sod Bicarbonate in NS 8.4% 1 ML Syringe IDERM PRN; Sodium Chloride 0.9% 10 ML Syringe FLUSH PRN
--- NOTE | 2020-05-15 07:24 | PCM.PREANE ---
Preanesthetic Assessment - Procedure Proposed Procedure: Diag. EGD - Anesthesia/Transfusion/Family Hx Anesthesia History: Prior Anesthesia Reaction Family History of Anesthesia Reaction: No Transfusion History: No Prior Transfusion(s) - Review of Systems General: Malaise Pulmonary: No Symptoms Cardiovascular: No Symptoms Gastrointestinal: Abdominal Pain, Nausea Neurological: No Symptoms Other: Reports: Anxiety - Physical Assessment NPO Status Date: 05/14/20 NPO Status Time: 11:00 Height: 1.75 m Weight: 73.8 kg ASA Class: 2 Mental Status: Alert & Oriented x3 Airway Class: Mallampati = 1 Dentition: Reports: Normal Dentition Thyro-Mental Finger Breadths: 3 Mouth Opening Finger Breadths: 3 ROM/Head Extension: Full Lungs: Clear to Auscultation, Normal Respiratory Effort Cardiovascular: Regular Rate, Regular Rhythm - Allergies Allergies/Adverse Reactions: Allergies Allergy/AdvReac Type Severity Reaction Status Date / Time No Known Allergies Allergy Verified 05/14/20 11:41 - Blood Blood Available: No Product(s) Available: None - Anesthesia Plan Pre-Op Medication Ordered: None - Acknowledgements Anesthesia Type Planned: MAC Pt an Appropriate Candidate for the Planned Anesthesia: Yes Alternatives and Risks of Anesthesia Discussed w Pt/Guardian: Yes Pt/Guardian Understands and Agrees with Anesthesia Plan: Yes PreAnesthesia Questionnaire HEENT History: Reports: Impaired Vision Other HEENT History: Wears glasses Cardiovascular History: Reports: Hypertension Respiratory History: Reports: None Gastrointestinal History: Reports: GERD, Hiatal Hernia, Other (See Below) Other Gastrointestinal History: dysphagia, esophageal stricture Genitourinary History: Reports: None PULLBOAT ENGINEER History: Reports: None Musculoskeletal History: Reports: Arthritis Neurological History: Reports: Migraines Psychiatric History: Reports: Anxiety Endocrine/Metabolic History: Reports: None Hematologic History: Reports: None Immunologic History: Reports: None Oncologic (Cancer) History: Reports: None Dermatologic History: Reports: None - Infectious Disease History Infectious Disease History: Reports: None - Past Surgical History Head Surgeries/Procedures: Reports: None HEENT Surgical History: Reports: Adenoidectomy, Myringotomy w Tube(s), Naso- Sinus Surgery, Tonsillectomy Cardiovascular Surgical History: Reports: None Respiratory Surgical History: Reports: None GI Surgical History: Reports: None Female Surgical History: Reports: None Male Surgical History: Reports: None Endocrine Surgical History: Reports: None Neurological Surgical History: Reports: None Musculoskeletal Surgical History: Reports: Arthroscopic Knee, Other (See Below) Other Musculoskeletal Surgeries/Procedures:: Left Knee Surgery Oncologic Surgical History: Reports: None Dermatological Surgical History: Reports: None - SUBSTANCE USE Tobacco Use Status *Q: Never Tobacco User Recreational Drug Use History: No - HOME MEDS Home Medications: Home Meds Pantoprazole [ProTONIX] 40 mg PO DAILY 05/12/20 [History] Sucralfate [Carafate] 1 gm PO TID #300 ml 05/12/20 [Rx] Famotidine [Pepcid AC] 20 mg PO DAILY 05/14/20 [History] Fish Oil/[place]-3 Fatty Acids [Fish Oil 1,000 MG] 1 gm PO DAILY 05/14/20 [History] Shel[place] 500 mg PO DAILY 05/14/20 [History] LORazepam [Ativan] 0.5 mg PO BID PRN 05/14/20 [History] Multivitamin 1 tab PO DAILY 05/14/20 [History] diphenhydrAMINE HCL [Benadryl] 25 mg PO BEDTIME 05/14/20 [History] valACYclovir [Valtrex] 1,000 mg PO ASDIRECTED PRN 05/14/20 [History] - CURRENT (IN HOUSE) MEDS Current Meds: Current Medications Lactated Ringer's (Ringers, Lactated) 1,000 mls @ 125 mls/hr IV ASDIRECTED MELLY Stop: 05/15/20 23:00 Lidocaine/Sodium Bicarbonate (Lidocaine 1%/Sod Bicarbonate In Ns 8.4% 1 Ml Syringe) 0.25 ml IDERM ONETIME PRN PRN Reason: Prior to IV Start Stop: 05/15/20 18:00 Sodium Chloride (Sodium Chloride 0.9% 10 Ml Syringe) 10 ml FLUSH ASDIRECTED PRN PRN Reason: Keep Vein Open Stop: 05/15/20 18:00
[2020-05-15] MEDS ORDERED: Midazolam 1 MG/ML 2 ML SDV ONE (07:34)
[2020-05-15] MEDS ORDERED: Lidocaine 1% 4 ML ONE (07:35)
[2020-05-15] MEDS ORDERED: Propofol 200 MG/20 ML SDV ONE ×2 (07:35→07:42)
--- NOTE | 2020-05-15 07:59 | PCM.PRNOTE ---
- Free Text/Narrative Note: Date: 05/15/2020 Procedure: diagnostic esophagogastroduodenoscopy History: recent EGD with reported peptic stricture dilated to 17 mm, and finding of small sliding hiatal hernia. Patient has continued dysphagia and weight loss. Endoscopist: Benji Cote MD Findings: gross changes in esophagus consistent with reflux esophagitis. No stricture. duodenum and stomach appeared normal and no hiatal hernia noted. Normal appearance to Z line. Biopsies of duodenum, antrum, and distal esophagus obtained with cold forceps. Detailed Report: The patient was taken to the endoscopy suite and placed in left lateral decubitus position. A bite block was placed, and timeout was performed. Monitored anesthesia care was initiated. The endoscope was inserted into the mouth and advanced to the second portion of the duodenum with ease. Duodenal mucosa appeared normal with snyder yellow bile contents. A sample biopsy of duodenal bulb mucosa was obtained with cold forceps. The pylorus appeared normal. A sample of gastric antral mucosa was obtained as well. There was no gross evidence of gastritis or ulceration. The incisura appeared normal. On retroflexion of the scope, no hiatal hernia was appreciated. The scope was then withdrawn into the distal esophagus. The Z-line appeared relatively normal. The esophageal mucosa had some linear streaking consistent with LA grade a reflux esophagitis. Biopsies with cold forceps of distal esophagus were obtained. No other abnormalities were noted on withdrawal of the scope through the esophagus. Air was suctioned from the stomach prior to withdrawal of the scope. Patient tolerated the procedure well.
--- NOTE | 2020-05-15 08:07 | PCM48HPAN ---
Post Anesthesia Note - EVALUATION WITHIN 48HRS OF ANESTHETIC Vital Signs in Normal Range: Yes Patient Participated in Evaluation: Yes Respiratory Function Stable: Yes Airway Patent: Yes Cardiovascular Function Stable: Yes Hydration Status Stable: Yes Pain Control Satisfactory: Yes Nausea and Vomiting Control Satisfactory: Yes Mental Status Recovered: Yes Vital Signs: Last Vital Signs Temp 36.7 C 05/15/20 06:30 Pulse 79 05/15/20 06:30 Resp 16 05/15/20 06:30 BP 130/86 05/15/20 06:30 Pulse Ox 97 05/15/20 06:30 - COMMENTS/OBSERVATIONS Free Text/Narrative:: no anesthesia complications noted
== END 2020-05-15 09:35 | disposition home or self-care (01) ==
LOC: JD.SDS 06:33
PROVIDERS: ATTEND Surgery
DX: K29.50 Unspecified chronic gastritis without bleeding (principal); K31.89 Other diseases of stomach and duodenum; K22.2 Esophageal obstruction; K21.9 Gastro-esophageal reflux disease without esophagitis; I10 Essential (primary) hypertension; F41.9 Anxiety disorder, unspecified; Z98.890 Other specified postprocedural states; Z79.899 Other long term (current) drug therapy
CPT/HCPCS: 43239; J2250; J2704; J7120; 00731

== ENCOUNTER 2020-05-26 00:20 | Emergency (ER) | payer BC ==
--- NOTE | 2020-05-26 01:06 | EDM.PDOC ---
ED HPI GENERAL MEDICAL PROBLEM - General Chief Complaint: General Stated Complaint: VOMITING/SEVERE HEADACHES/DIZZY Time Seen by Provider: 05/26/20 00:30 Source of Information: Reports: Patient, Significant Other (Girlfriend) History Limitations: Reports: No Limitations - History of Present Illness INITIAL COMMENTS - FREE TEXT/NARRATIVE: Mr. Cowart is a pleasant 39-year-old gentleman who now presents the ED with concerns about an adverse reaction to one or more of his recently prescribed medications. The patient states that he has been suffering from dysphagia and weight loss for quite some time. He underwent an EGD on 05/15/2020, which, according to the patient, did not find any abnormalities. The patient states that a gastric biopsy returned negative for H. pylori. The patient then followed up with his PCP, submitting a stool H. pylori test this past 05/19/2020. He states that he received positive results on , 05/21/2020, and was therefore started on metronidazole and clarithromycin on 05/22/2020. He states that in addition, he switched from pantoprazole, which she did not feel was helping with his GERD, to omeprazole. The patient now presents the ED stating that he developed visual and auditory hallucinations, a headache, nausea, dyspnea, and sore legs with unsteady gait around 2100 tonight, although he may have had the early onset of the symptoms last night. He denies prior similar symptoms. No recent fever. Here in the ED, the patient's initial BP is found to be mildly elevated at 152/103, otherwise, he is hemodynamically stable, afebrile, saturating 99% on room air. Other than his chronic GERD-like symptoms with weight loss, the patient denies having a recent fever, chills, sore throat, ear pain, nasal or sinus congestion, cough, dyspnea, chest pain, palpitations, nausea, vomiting, constipation, diarrhea, abdominal pain, urinary symptoms, recent bloody bowel movements or black bowel movements, recent joint aches, headaches, or rashes. The patient's PCP is Verona Jacobsen NP. His Surgeon is Dr. Benji Moreno. He does not recall the name of his environmental health specialist at [facility]. Headache Pain Score (Numeric/FACES): 7 - Related Data Allergies Allergy/AdvReac Type Severity Reaction Status Date / Time No Known Allergies Allergy Verified 05/26/20 00:31 Home Meds: Home Meds Pantoprazole [ProTONIX] 40 mg PO DAILY 05/12/20 [History] Sucralfate [Carafate] 1 gm PO TID #300 ml 05/12/20 [Rx] Famotidine [Pepcid AC] 20 mg PO DAILY 05/14/20 [History] Fish Oil/[place]-3 Fatty Acids [Fish Oil 1,000 MG] 1 gm PO DAILY 05/14/20 [History] Shelbie 500 mg PO DAILY 05/14/20 [History] LORazepam [Ativan] 0.5 mg PO BID PRN 05/14/20 [History] Multivitamin 1 tab PO DAILY 05/14/20 [History] diphenhydrAMINE HCL [Benadryl] 25 mg PO BEDTIME 05/14/20 [History] valACYclovir [Valtrex] 1,000 mg PO ASDIRECTED PRN 05/14/20 [History] Past Medical History HEENT History: Reports: Impaired Vision (wears glasses) Cardiovascular History: Reports: Hypertension Gastrointestinal History: Reports: GERD, Hiatal Hernia Psychiatric History: Reports: Anxiety - Infectious Disease History Infectious Disease History: Reports: Helicobacter Pylori (dx'd 05/19/2020) - Past Surgical History HEENT Surgical History: Reports: Adenoidectomy, Myringotomy w Tube(s), Tonsillectomy GI Surgical History: Reports: Colonoscopy (x 1), EGD (x 3) Musculoskeletal Surgical History: Reports: Arthroscopic Knee (left), Other (See Below) (Left knee pinning) Social & Family History - Tobacco Use Tobacco Use Status *Q: Never Tobacco User - Caffeine Use Caffeine Use: Reports: Tea - Alcohol Use Alcohol Use History: No - Recreational Drug Use Recreational Drug Use: No - Living Situation & Occupation Living situation: Reports: , with Significant Other (Girlfriend) Occupation: Unemployed ED ROS GENERAL - Review of Systems Review Of Systems: Comprehensive ROS is negative, except as noted in HPI. ED EXAM, GENERAL - Physical Exam Exam: See Below Exam Limited By: No Limitations General Appearance: Alert, WD/WN, No Apparent Distress Eye Exam: Bilateral Eye: EOMI, Normal Inspection Ears: Normal External Exam, Hearing Grossly Normal Nose: Normal Inspection Throat/Mouth: Normal Inspection, Normal Lips, Normal Voice, No Airway Compromise Head: Atraumatic, Normocephalic Neck: Normal Inspection, Full Range of Motion Respiratory/Chest: No Respiratory Distress, Lungs Clear, Normal Breath Sounds, No Accessory Muscle Use Cardiovascular: Normal Peripheral Pulses, Regular Rate, Rhythm, No Edema, No Gallop, No JVD, No Murmur, No Rub Peripheral Pulses: 3+: Radial (L), Radial (R) GI/Abdominal: Normal Bowel Sounds, Soft, No Organomegaly, No Distention, No Abnormal Bruit, No Mass, Tender (mild, generalized, non-focal) Back Exam: Normal Inspection, Full Range of Motion, NT Extremities: Normal Inspection, Normal Range of Motion, No Pedal Edema, Normal Capillary Refill Neurological: Alert, Oriented, Normal Cognition, No Motor/Sensory Deficits Psychiatric: Depressed Mood, Flat Affect Skin Exam: Warm, Dry, Intact, Normal Color, No Rash Course - Vital Signs Last Recorded V/S: Last Vital Signs Temp 36.2 C 05/26/20 00:31 Pulse 85 05/26/20 00:31 Resp 15 05/26/20 00:31 BP 152/103 H 05/26/20 00:31 Pulse Ox 99 05/26/20 00:31 - Orders/Labs/Meds Labs: Laboratory Tests 05/26/20 05/26/20 Range/Units 01:17 01:17 WBC 5.59 (4.23-9.07) K/mm3 RBC 4.81 (4.63-6.08) M/mm3 Hgb 14.6 (13.7-17.5) gm/dl Hct 41.9 (40.1-51.0) % MCV 87.1 (79.0-92.2) fl MCH 30.4 (25.7-32.2) pg MCHC 34.8 (32.2-35.5) g/dl RDW Std Deviation 39.9 (35.1-43.9) fL Plt Count 233 (163-337) K/mm3 MPV 9.8 (9.4-12.3) fl Neutrophils % (Manual) 62 H (40-60) % Band Neutrophils % 0 (0-10) % Lymphocytes % (Manual) 24 (20-40) % Atypical Lymphs % 0 % Monocytes % (Manual) 11 H (2-10) % Eosinophils % (Manual) 2 (0.8-7.0) % Basophils % (Manual) 1 (0.2-1.2) Platelet Estimate Adequate RBC Morph Comment Normal Sodium 141 (136-145) mEq/L Potassium 3.7 (3.5-5.1) mEq/L Chloride 103 (98-107) mEq/L Carbon Dioxide 23 (21-32) mEq/L Anion Gap 18.7 H (5-15) BUN 11 (7-18) mg/dL Creatinine 1.3 (0.7-1.3) mg/dL Est Cr Clr Drug Dosing 77.04 mL/min Estimated GFR (MDRD) > 60 (>60) mL/min BUN/Creatinine Ratio 8.5 L (14-18) Glucose 109 H (74-106) mg/dL Calcium 9.1 (8.5-10.1) mg/dL Magnesium 2.0 (1.8-2.4) mg/dl Total Bilirubin 0.9 (0.2-1.0) mg/dL AST 16 (15-37) U/L ALT 29 (16-63) U/L Alkaline Phosphatase 53 (46-116) U/L Total Protein 7.3 (6.4-8.2) g/dl Albumin 4.4 (3.4-5.0) g/dl Globulin 2.9 gm/dL Albumin/Globulin Ratio 1.5 (1-2) Lipase 200 (73-393) U/L - Re-Assessments/Exams Free Text/Narrative Re-Assessment/Exam: 05/26/20 01:03 As above, a gastric biopsy performed at EGD on 05/15/2020 was reportedly negative for H. pylori, but a stool antigen assay obtained 05/19/2020 returned positive, prompting the patient to be started on metronidazole and clarithromycin this past Monday. He now is experiencing visual and auditory hallucinations, headache, nausea, dyspnea, and sore legs with unsteady gait. The headache and nausea could be caused by either the metronidazole or clarithromycin, and although metronidazole has been associated with neurologic abnormalities, I am not aware that it causes hallucinations. As for his dyspnea and sore legs, the cause of that is unlikely related to either medication. For today's purposes, I am recommending that we check some blood work to make sure that there are no significant fluid or electrolyte abnormalities that need to be corrected. 05/26/20 03:18 The patient's CBC is unremarkable. His CMP is remarkable for an anion gap slightly elevated at 18.7, but with a bic arbonate normal at 23, and slight hyperglycemia of 109, with the remainder of his CMP being unremarkable. His magnesium level is within normal limits at 2.0. His lipase level is within normal limits at 200. 05/26/20 03:20 Test results discussed with the patient and his girlfriend. He appears to be in better spirits at this time. I recommended that he discontinue the metronidazole and clarithromycin, then follow-up with his PCP. He agreed with that plan. Departure - Departure Time of Disposition: 03:21 Disposition: Home, Self-Care 01 Condition: Good Clinical Impression: Hallucinations, Headache, Nausea, Dyspnea, Unsteady gait - Discharge Information *PRESCRIPTION DRUG MONITORING PROGRAM REVIEWED*: Not Applicable *COPY OF PRESCRIPTION DRUG MONITORING REPORT IN PATIENT ALEJANDRINA: Not Applicable Instructions: Nausea, Adult Referrals: Verona Jacobsen NP [Primary Care Provider] - Benji Moreno MD [Physician] - Forms: ED Department Discharge Additional Instructions: You were seen in the emergency room after developing visual and auditory hallucinations, along with a headache, nausea, shortness of breath, and sore legs with an unsteady gait, after being started on metronidazole and clarithromycin, for treatment of H. pylori. Work-up in the ER included several blood tests, which all returned unremarkable. You do not have an elevated white blood cell count to suggest infection. You are not anemic. No electrolyte abnormalities were found. Both metronidazole and clarithromycin can cause headaches and nausea, however, the cause of your hallucinations, shortness of breath, and sore legs with unsteady gait is not entirely clear. We recommend that you discontinue both the metronidazole and clarithromycin. We recommend that you continue to take the omeprazole. We recommend that you follow-up with your PCP, Verona Jacobsen NP, at the next available appointment. If any other problems, please do not hesitate to return to the ER. Sepsis Event Note (ED) - Evaluation Sepsis Screening Result: No Definite Risk - Focused Exam Vital Signs: Vital Signs Temp Pulse Resp BP Pulse Ox 05/26/20 00:31 36.2 C 85 15 152/103 H 99
== END 2020-05-26 03:38 | disposition home or self-care (01) ==
LOC: JD.ED 00:20
DX: R44.0 Auditory hallucinations (principal); R44.1 Visual hallucinations; R51.9 Headache, unspecified; R11.0 Nausea; R26.81 Unsteadiness on feet; I10 Essential (primary) hypertension; K21.9 Gastro-esophageal reflux disease without esophagitis; Z79.899 Other long term (current) drug therapy
CPT/HCPCS: 36415; 80053; 83690; 83735; 85007; 85027; 99283; 99284

== ENCOUNTER 2021-02-22 14:38 | Emergency (ER) | payer BC ==
[2021-02-22] MEDS ORDERED: Ketorolac 15 MG/ML SDV IVPUSH ONE (15:38)
[2021-02-22] MEDS ORDERED: Ondansetron 4 MG/2 ML SDV IVPUSH ONE (15:38)
--- NOTE | 2021-02-22 15:56 | EDM.PDOC ---
ED HPI GENERAL MEDICAL PROBLEM - General Chief Complaint: Chest Pain Stated Complaint: IRREGULAR HEARTBEAT, CHEST TIGHTNESS, NAUSEA Time Seen by Provider: 02/22/21 15:53 Source of Information: Reports: Patient History Limitations: Reports: No Limitations - History of Present Illness INITIAL COMMENTS - FREE TEXT/NARRATIVE: Patient is a 40-year-old male with a past medical history of hypertension and anxiety presenting with a chief complaint of chest pain. Chest pain was sudden onset this morning. Patient states symptoms were onset at rest. Patient reports sharp left-sided chest pain is associated with nausea and vomiting. He also had associated palpitations but no syncope. No radiation of pain. Patient states symptoms have somewhat improved. Patient did not take any medication prior to arrival. Patient denies any similar symptoms in the past. Patient also denies shortness of breath, back pain, dizziness. Patient initially went into the walk-in clinic and they referred him to the emergency room. He went home for several hours and finally decided to come in. Family history significant for grandfather siblings who had heart attacks but no first-degree relatives. Chest Pain Score (Numeric/FACES): 5 - Related Data Allergies Allergy/AdvReac Type Severity Reaction Status Date / Time No Known Allergies Allergy Verified 05/26/20 00:31 Home Meds: Home Meds Famotidine [Pepcid AC] 20 mg PO DAILY PRN 05/14/20 [History] Fish Oil/[place]-3 Fatty Acids [Fish Oil 1,000 MG] 1 gm PO DAILY 05/14/20 [History] LORazepam [Ativan] 0.5 mg PO BID PRN 05/14/20 [History] diphenhydrAMINE HCL [Benadryl] 25 mg PO BEDTIME PRN 05/14/20 [History] valACYclovir [Valtrex] 1,000 mg PO ASDIRECTED PRN 05/14/20 [History] Past Medical History HEENT History: Reports: Impaired Vision Other HEENT History: Wears glasses Cardiovascular History: Reports: Hypertension Respiratory History: Reports: None Gastrointestinal History: Reports: GERD, Hiatal Hernia Other Gastrointestinal History: dysphagia, esophageal stricture Genitourinary History: Reports: None DIETARY SERVICES MANAGER History: Reports: None Musculoskeletal History: Reports: Arthritis, Fracture Neurological History: Reports: Migraines Psychiatric History: Reports: Anxiety Endocrine/Metabolic History: Reports: None Hematologic History: Reports: None Immunologic History: Reports: None Oncologic (Cancer) History: Reports: None Dermatologic History: Reports: None - Infectious Disease History Infectious Disease History: Reports: Chicken Pox, Helicobacter Pylori, Influenza, Novel Coronavirus - Past Surgical History HEENT Surgical History: Reports: Adenoidectomy, Myringotomy w Tube(s), Tonsillectomy Respiratory Surgical History: Reports: None GI Surgical History: Reports: Colonoscopy, EGD Musculoskeletal Surgical History: Reports: Arthroscopic Knee, Other (See Below) Other Musculoskeletal Surgeries/Procedures:: Left Knee Surgery Social & Family History - Tobacco Use Tobacco Use Status *Q: Never Tobacco User Second Hand Smoke Exposure: No - Caffeine Use Caffeine Use: Reports: Coffee - Recreational Drug Use Recreational Drug Use: No - Living Situation & Occupation Living situation: Reports: , with Significant Other (Girlfriend) Occupation: Unemployed ED ROS GENERAL - Review of Systems Review Of Systems: See Below Free Text/Narrative/Comment: In addition to that documented in the HPI above, the additional ROS was obtained: Constitutional: Denies fevers or chills Eyes: Denies vision changes ENMT: Denies sore throat CV: Per HPI Resp: Denies SOB GI: Per HPI : Denies painful urination MSK: Denies recent trauma Skin: Denies new rashes Neuro: Denies new numbness or tingling or weakness Endocrine: Denies unexpected weight loss Heme: Denies bleeding disorders ED EXAM, GENERAL - Physical Exam Exam: See Below Free Text/Narrative:: I have reviewed the triage vital signs Const: Well nourished, well developed, appears stated age Eyes: Pupils Equal and reactive to light bilaterally, no conjunctival injection HENT: No signs of trauma or swelling, Neck supple without meningismus CV: Regular Rate Rhythm, Warm, well-perfused extremities RESP: Unlabored respiratory effort MSK: No gross deformities appreciated Skin: Warm, dry. No rashes Neuro: Alert, historic sites supervisor II-XII grossly intact. Sensation and motor function of extremities grossly intact. Psych: Appropriate mood and affect. #1 Interpretation EKG Date: 02/22/21 Time: 14:44 Rhythm: NSR Rate (Beats/Min): 87 [place]: Normal P-Wave: Enlarged QRS: Normal ST-T: Normal QT: Normal Comparison: No Change EKG Interpretation Comments: Abnormal EKG Course - Vital Signs Last Recorded V/S: Last Vital Signs Temp 36.2 C 02/22/21 14:40 Pulse 90 02/22/21 14:40 Resp 20 02/22/21 14:40 BP 147/95 H 02/22/21 14:40 Pulse Ox 98 02/22/21 14:40 - Orders/Labs/Meds Orders: Active Orders 24 hr Category Date Time Status Chest 1V Frontal [CR] Stat Exams 02/22/21 15:37 Taken Labs: Laboratory Tests 02/22/21 02/22/21 02/22/21 Range/Units 14:50 14:55 14:55 WBC 9.44 H (4.23-9.07) K/mm3 RBC 5.21 (4.63-6.08) M/mm3 Hgb 16.1 D (13.7-17.5) gm/dl Hct 45.2 (40.1-51.0) % MCV 86.8 (79.0-92.2) fl MCH 30.9 (25.7-32.2) pg MCHC 35.6 H (32.2-35.5) g/dl RDW Std Deviation 39.7 (35.1-43.9) fL Plt Count 228 (163-337) K/mm3 MPV 10.6 (9.4-12.3) fl Neut % (Auto) 86.3 H (34.0-67.9) % Lymph % (Auto) 7.9 L (21.8-53.1) % [place] % (Auto) 4.9 L (5.3-12.2) % Eos % (Auto) 0.2 L (0.8-7.0) Baso % (Auto) 0.2 (0.1-1.2) % Neut # (Auto) 8.14 H (1.78-5.38) K/mm3 Lymph # (Auto) 0.75 L (1.32-3.57) K/mm3 [place] # (Auto) 0.46 (0.30-0.82) K/mm3 Eos # (Auto) 0.02 L (0.04-0.54) K/mm3 Baso # (Auto) 0.02 (0.01-0.08) K/mm3 PT 10.8 (9.7-12.0) SECONDS INR 0.97 D-Dimer, Quantitative 0.35 (0.19-0.50) mg/L Sodium (136-145) mEq/L Potassium (3.5-5.1) mEq/L Chloride (98-107) mEq/L Carbon Dioxide (21-32) mEq/L Anion Gap (5-15) BUN (7-18) mg/dL Creatinine (0.7-1.3) mg/dL Est Cr Clr Drug Dosing mL/min Estimated GFR (MDRD) (>60) mL/min BUN/Creatinine Ratio (14-18) Glucose (70-99) mg/dL Calcium (8.5-10.1) mg/dL Total Bilirubin (0.2-1.0) mg/dL AST (15-37) U/L ALT (16-63) U/L Alkaline Phosphatase (46-116) U/L Troponin I (0.00-0.056) ng/mL Total Protein (6.4-8.2) g/dl Albumin (3.4-5.0) g/dl Globulin gm/dL Albumin/Globulin Ratio (1-2) Lipase (73-393) U/L Influenza Type A RNA Negative (NEGATIVE) Influenza Type B RNA Negative (NEGATIVE) SARS-CoV-2 RNA (TARIQ) Negative (NEGATIVE) 02/22/21 Range/Units 14:55 WBC (4.23-9.07) K/mm3 RBC (4.63-6.08) M/mm3 Hgb (13.7-17.5) gm/dl Hct (40.1-51.0) % MCV (79.0-92.2) fl MCH (25.7-32.2) pg MCHC (32.2-35.5) g/dl RDW Std Deviation (35.1-43.9) fL Plt Count (163-337) K/mm3 MPV (9.4-12.3) fl Neut % (Auto) (34.0-67.9) % Lymph % (Auto) (21.8-53.1) % [place] % (Auto) (5.3-12.2) % Eos % (Auto) (0.8-7.0) Baso % (Auto) (0.1-1.2) % Neut # (Auto) (1.78-5.38) K/mm3 Lymph # (Auto) (1.32-3.57) K/mm3 [place] # (Auto) (0.30-0.82) K/mm3 Eos # (Auto) (0.04-0.54) K/mm3 Baso # (Auto) (0.01-0.08) K/mm3 PT (9.7-12.0) SECONDS INR D-Dimer, Quantitative (0.19-0.50) mg/L Sodium 142 (136-145) mEq/L Potassium 4.1 (3.5-5.1) mEq/L Chloride 103 (98-107) mEq/L Carbon Dioxide 25 (21-32) mEq/L Anion Gap 18.1 H (5-15) BUN 11 (7-18) mg/dL Creatinine 1.2 (0.7-1.3) mg/dL Est Cr Clr Drug Dosing 82.65 mL/min Estimated GFR (MDRD) > 60 (>60) mL/min BUN/Creatinine Ratio 9.2 L (14-18) Glucose 112 H (70-99) mg/dL Calcium 9.4 (8.5-10.1) mg/dL Total Bilirubin 1.2 H (0.2-1.0) mg/dL AST 14 L (15-37) U/L ALT 24 (16-63) U/L Alkaline Phosphatase 66 (46-116) U/L Troponin I < 0.017 (0.00-0.056) ng/mL Total Protein 8.3 H (6.4-8.2) g/dl Albumin 4.5 (3.4-5.0) g/dl Globulin 3.8 gm/dL Albumin/Globulin Ratio 1.2 (1-2) Lipase 67 L (73-393) U/L Influenza Type A RNA (NEGATIVE) Influenza Type B RNA (NEGATIVE) SARS-CoV-2 RNA (TARIQ) (NEGATIVE) Meds: Medications Discontinued Medications Generic Name Dose Route Start Last Admin Trade Name Freq PRN Reason Stop Dose Admin Ketorolac Tromethamine 15 mg 02/22/21 15:38 02/22/21 15:44 Ketorolac 15 Mg/Ml Sdv IVPUSH 02/22/21 15:39 15 mg ONETIME ONE Administration Ondansetron HCl 4 mg 02/22/21 15:38 02/22/21 15:42 Ondansetron 4 Mg/2 Ml Sdv IVPUSH 02/22/21 15:39 4 mg ONETIME ONE Administration Departure - Departure Time of Disposition: 16:33 Disposition: Home, Self-Care 01 Clinical Impression: Chest tightness Instructions: Nonspecific Chest Pain, Adult, [id number] Referrals: Verona Jacobsen LAW ENFORCEMENT DIRECTOR [Primary Care Provider] - Forms: ED Department Discharge Additional Instructions: Follow-up with primary care in the next several days. Return to the emergency room for worsening symptoms or any other emergent concerns. Sepsis Event Note (ED) - Evaluation Sepsis Screening Result: No Definite Risk - Focused Exam Vital Signs: Vital Signs Temp Pulse Resp BP Pulse Ox 02/22/21 14:40 36.2 C 90 20 147/95 H 98 - My Orders Last 24 Hours: My Active Orders 02/22/21 15:37 Chest 1V Frontal [CR] Stat - Assessment/Plan Last 24 Hours: My Active Orders 02/22/21 15:37 Chest 1V Frontal [CR] Stat Assessment:: Patient 40-year-old male presents emergency room with chief complaint of chest pain and palpitations. Patient unremarkable ER course. EKG does not show any signs of ischemic changes. Troponin and D-dimer negative. Very low likelihood of DC and pulmonary embolism in this patient. Feels better after administration of Toradol. No further episodes of chest pain while in the emergency room. Will suspicion for ACS. Patient be discharged with outpatient follow-up. Return precautions discussed visual. Patient agrees with plan of care.
[2021-02-22 16:12] LABS: CORONAVIRUS COVID-19 NAA NEGATIVE (NEGATIVE)
--- NOTE | 2021-02-22 16:56 | CR ---
EXAM: XR CHEST 1 VIEW LOCATION: [facility] [employer] DATE/TIME: 02/22/2021 3:40 PM INDICATION: Dyspnea COMPARISON: 12-May-2020. 1 view chest xray IMPRESSION: There are likely a few tiny calcified granulomata left upper lobe with lungs otherwise clear. Heart size and pulmonary vessels normal. SIGNED BY: Brad Birmingham MD 02/22/2021 5:40 PM [facility]ENTER[facility]
== END 2021-02-22 16:53 | disposition home or self-care (01) ==
LOC: JD.ED 14:38
DX: R07.89 Other chest pain (principal); I10 Essential (primary) hypertension; Z20.822 Contact with and (suspected) exposure to COVID-19
CPT/HCPCS: 0240U; 36415; 71045; 80053; 83690; 84484; 85025; 85379; 85610; 96374; 96375; 99285; J1885; J2405

== ENCOUNTER 2023-11-21 03:19 | Emergency (ER) | payer BC ==
[2023-11-21] MEDS ORDERED: Sodium Chloride 0.9% 10 ML Syringe FLUSH PRN (04:10)
[2023-11-21] MEDS: Iopamidol 612 MG/ML 100 ML Bottle IVPUSH ONE (04:46)
== END 2023-11-21 05:40 | disposition home or self-care (01) ==
LOC: JD.ED 03:19
DX: R10.13 Epigastric pain (principal); K44.9 Diaphragmatic hernia without obstruction or gangrene; I10 Essential (primary) hypertension; Z86.16 Personal history of COVID-19
CPT/HCPCS: 74177; 93005; 99284; Q9967

== ENCOUNTER 2023-11-26 08:41 | Emergency (ER) | payer BC ==
[2023-11-26 09:22] LABS: BASOPHILS PERCENT AUTO 0.8 % (0.0-1.0); EOSINOPHILS ABSOLUTE AUTO 0.2 K/mm3 (0.0-0.4); EOSINOPHILS PERCENT AUTO 4.4 % (0.0-6.0); HEMATOCRIT 44.7 % (42.0-52.0); HEMOGLOBIN 15.9 gm/dl (14.0-18.0); IMMATURE GRAN ABSOLUTE AUTO 0.01 K/mm3 (0.00-0.05); IMMATURE GRAN PERCENT AUTO 0.3 % (0.0-0.4); LYMPHOCYTES ABSOLUTE AUTO 1.1 K/mm3 (1.0-4.8); MEAN CORPUSCULAR HEMOGLOBIN 31.2 pg (28.0-32.0); MEAN CORPUSCULAR HGB CONC 35.6 g/dl (32.0-36.0); MEAN CORPUSCULAR VOLUME 87.8 fl (83.0-99.0); MEAN PLATELET VOLUME 9.7 fl (9.4-12.4); MONOCYTES ABSOLUTE AUTO 0.5 K/mm3 (0.0-0.8); MONOCYTES PERCENT AUTO 14.8 % (0.0-8.0); NEUTROPHILS ABSOLUTE AUTO 1.9 K/mm3 (1.8-7.7); NEUTROPHILS PERCENT AUTO 50.7 % (41.0-71.0); PLATELET COUNT,PLT 227 K/mm3 (150-400); RED BLOOD CELL COUNT 5.09 M/mm3 (4.52-5.90); WHITE BLOOD CELL COUNT,WBC 3.66 K/mm3 (3.9-11.3)
[2023-11-26 09:34] LABS: A/G RATIO 1.4 (1-2); ALBUMIN 4.6 g/dl (3.4-5.0); ANION GAP 15.3 (5-15); BILIRUBIN TOTAL 1.5 mg/dL (0.2-1.0); BUN/CREATININE RATIO 8.7 (14-18); CALCIUM 9.4 mg/dL (8.5-10.1); CREATININE 1.5 mg/dL (0.7-1.3); EST CRCL DRUG DOSING (CG) 64.15 mL/min; POTASSIUM,K 4.3 mEq/L (3.5-5.1); PROTEIN TOTAL,TP 7.8 g/dl (6.4-8.2)
[2023-11-26] MEDS: Iopamidol 755 Mg/ML 100 ML Bottle IVPUSH ONE (09:48)
[2023-11-26] MEDS: Sodium Chloride 0.9% 100 ML IV SCH (09:48)
[2023-11-26] MEDS: Sodium Chloride 0.9% 1,000 ML IV ONE (10:03)
[2023-11-26] MEDS ORDERED: Famotidine 20 MG Tab ONE (10:04)
[2023-11-26] MEDS: Alum Hydrox/Mag Hydrox/Simeth 30 ML, Lidocaine 2% 15 ML PO ONE (10:06)
[2023-11-26] MEDS: Famotidine 20 MG Tab PO ONE (10:06)
[2023-11-26] MEDS: Sodium Chloride 0.9% 10 ML Syringe FLUSH PRN (10:09)
== END 2023-11-26 15:35 | disposition home or self-care (01) ==
LOC: JD.ED 08:41
DX: R07.9 Chest pain, unspecified (principal); I10 Essential (primary) hypertension; K21.9 Gastro-esophageal reflux disease without esophagitis; Z79.899 Other long term (current) drug therapy
CPT/HCPCS: 36415; 71275; 80053; 83690; 84484; 85025; 93005; 96360; 99285; A9270; J3490; J7030; Q9967; 93010; 99284

== ENCOUNTER 2023-11-26 22:08 | Emergency (ER) | payer BC ==
[2023-11-26] MEDS: Sodium Chloride 0.9% 1,000 ML IV SCH (22:39)
[2023-11-26] MEDS: Metoclopramide 10 MG/2 ML SDV IVPUSH ONE (22:41)
[2023-11-26] MEDS: HYDROmorphone 1 MG/ML Syringe IVPUSH ONE (22:44)
[2023-11-26 22:57] LABS: APPEARANCE,URINE CLEAR (Clear); BILIRUBIN,URINE NEGATIVE (Negative); COLOR,URINE LIGHT YELLOW (Yellow); GLUCOSE,URINE NEGATIVE (Negative); KETONES,URINE NEGATIVE (Negative); LEUKOCYTE ESTERASE,URINE NEGATIVE (Negative); NITRITE,URINE NEGATIVE (Negative); OCCULT BLOOD,URINE NEGATIVE (Negative); PH,URINE 6.5 (5.0-8.0); PROTEIN,URINE NEGATIVE (Negative); UROBILINOGEN,URINE 0.2 (0.2-1.0)
[2023-11-26 23:06] LABS: BACTERIA,URINE RARE /hpf (FEW); EPITHELIAL CELLS,URINE NOT SEEN /hpf (0-5); MUCUS,URINE NOT SEEN /hpf (FEW); RBC,URINE NOT SEEN /hpf (0-5); WBC,URINE 0-5 /hpf (0-5)
== END 2023-11-26 23:55 | disposition home or self-care (01) ==
LOC: JD.ED 22:08
DX: N20.1 Calculus of ureter (principal); I10 Essential (primary) hypertension; K21.9 Gastro-esophageal reflux disease without esophagitis; Z79.899 Other long term (current) drug therapy
CPT/HCPCS: 74176; 81001; 96361; 96374; 96375; 99284; J1171; J2765; J7030

== ENCOUNTER 2024-08-29 19:07 | Emergency (ER) | payer BC ==
[2024-08-29 20:07] LABS: BASOPHILS ABSOLUTE AUTO 0.0 K/mm3 (0.0-0.2); BASOPHILS PERCENT AUTO 0.7 % (0.0-1.0); EOSINOPHILS ABSOLUTE AUTO 0.2 K/mm3 (0.0-0.4); EOSINOPHILS PERCENT AUTO 2.9 % (0.0-6.0); IMMATURE GRAN ABSOLUTE AUTO 0.02 K/mm3 (0.00-0.05); IMMATURE GRAN PERCENT AUTO 0.3 % (0.0-0.4); LYMPHOCYTES ABSOLUTE AUTO 1.4 K/mm3 (1.0-4.8); LYMPHOCYTES PERCENT AUTO 23.0 % (24.0-44.0); MEAN PLATELET VOLUME 10.0 fl (9.4-12.4); MONOCYTES ABSOLUTE AUTO 0.6 K/mm3 (0.0-0.8); MONOCYTES PERCENT AUTO 9.4 % (0.0-8.0); NEUTROPHILS ABSOLUTE AUTO 3.9 K/mm3 (1.8-7.7); NEUTROPHILS PERCENT AUTO 63.7 % (41.0-71.0); NRBC ABSOLUTE 0.00 (0.00-0.02); NRBC PERCENT 0.0 % (0.0-0.2); PLATELET COUNT,PLT 220 K/mm3 (150-400); RED BLOOD CELL COUNT 4.79 M/mm3 (4.52-5.90); WHITE BLOOD CELL COUNT,WBC 6.14 K/mm3 (3.9-11.3)
[2024-08-29] MEDS: LORazepam 2 MG/ML SDV IVPUSH ONE (20:10)
[2024-08-29] MEDS: Sodium Chloride 0.9% 10 ML Syringe FLUSH PRN (20:11)
[2024-08-29 20:30] LABS: A/G RATIO 1.4 (1-2); ALANINE AMINOTRANSFERASE,ALT 25 U/L (16-63); ASPARTATE AMNIOTRANSFERASE,AST 12 U/L (15-37); BILIRUBIN TOTAL 0.5 mg/dL (0.2-1.0); BLOOD UREA NITROGEN,BUN 14 mg/dL (7-18); CARBON DIOXIDE,CO2 27 mEq/L (21-32); CHLORIDE,CL 105 mEq/L (98-107); CREATININE 1.5 mg/dL (0.7-1.3); EST CRCL DRUG DOSING (CG) 63.50 mL/min; ESTIMATED GFR 59 mL/min (>60); GLUCOSE RANDOM 122 mg/dL (70-99); POTASSIUM,K 4.0 mEq/L (3.5-5.1); PROTEIN TOTAL,TP 7.3 g/dl (6.4-8.2); SODIUM,NA 141 mEq/L (136-145)
[2024-08-29 20:35] LABS: TROPONIN I HIGH SENSITIVITY < 4 pg/mL (<=76)
== END 2024-08-29 21:33 | disposition home or self-care (01) ==
LOC: JD.ED 19:07
DX: R07.89 Other chest pain (principal); R51.9 Headache, unspecified; I10 Essential (primary) hypertension; F41.9 Anxiety disorder, unspecified; K21.9 Gastro-esophageal reflux disease without esophagitis; Z87.891 Personal history of nicotine dependence; Z79.899 Other long term (current) drug therapy
CPT/HCPCS: 36415; 70450; 71046; 80053; 84484; 85025; 85379; 93005; 96374; 99285; J2060